=== PATIENT | male | born 1980 | race Hispanic/Latino ===

== ENCOUNTER 2017-08-28 00:44 | Emergency (ER) | payer SELFPAY | END 2017-08-28 01:09 | LOC: ERS 00:44 | DX: F10.129 Alcohol abuse with intoxication, unspecified (principal); F17.200 Nicotine dependence, unspecified, uncomplicated | CPT/HCPCS: 99284 ==

== ENCOUNTER 2018-01-15 15:57 | Emergency (ER) | payer SELFPAY | END 2018-01-15 17:04 | disposition home or self-care (01) | LOC: ERS 15:57 | DX: F10.129 Alcohol abuse with intoxication, unspecified (principal); F17.200 Nicotine dependence, unspecified, uncomplicated | CPT/HCPCS: 99283 ==

== ENCOUNTER 2020-05-13 13:58 | Observation (INO) | payer SELFPAY ==
[2020-05-13] MEDS ORDERED: Lorazepam 2 MG/ML VIAL ONE ×2 (14:21→15:36)
[2020-05-13] MEDS ORDERED: Ondansetron PF 4 MG/2 ML Vial ONE (14:38)
[2020-05-13 14:46] LABS: #Lymphocytes 0.6 thou/uL (1.20-3.40); #Neutrophils 10.9 thou/uL (1.40-6.50); %Basophils 0.3 % (0.0-1.0); %Eosinophils 0.1 % (0.0-10.0); %Lymphocytes 4.7 % (21.0-51.0); %Monocytes 8.2 % (0.0-10.0); %Neutrophils 86.8 % (42.0-75.0); Hemoglobin 13.8 g/dL (14.0-18.0); Mean Corpuscular HGB CONC 33.7 g/dL (32.0-36.0); Mean Corpuscular Hemoglobin 33.5 pg (27.0-31.0); Mean Corpuscular Volume 99.3 fL (78.0-98.0); Mean Platelet Volume 6.6 fL (7.4-10.4); Platelet Count 285 thou/uL (130-400); RBC Distribution Width 13.2 % (11.5-14.5); Red Blood Cell (RBC) Count 4.12 mill/uL (4.70-6.10); White Blood Cell (WBC) Count 12.6 thou/uL (4.8-10.8)
[2020-05-13 15:05] LABS: Acetaminophen Less than 6.0 mcg/mL (10.0-30.0); Alcohol 18 mg/dL (Less than 10); CK (CPK) 418 U/L (30-200); Salicylate Less than 8.0 mg/dL (15.0-30.0)
[2020-05-13 15:07] LABS: ALT (SGPT) 63 U/L (8-55); AST (SGOT) 68 U/L (5-34); Albumin 4.8 g/dL (3.5-5.0); Alkaline Phosphatase 134 U/L (40-110); Anion Gap 23 mmol/L (10-20); BUN (Urea Nitrogen) 7 mg/dL (8.9-20.6); Bilirubin, Total 1.1 mg/dL (0.2-1.2); Calc. Creatinine Clearance 0 mL/min (70-130); Calcium 9.8 mg/dL (7.8-10.44); Carbon Dioxide 21 mmol/L (22-29); Chloride 96 mmol/L (98-107); Globulin 3.5 g/dL (2.4-3.5); Glucose 88 mg/dL (70-105); Potassium 3.9 mmol/L (3.5-5.1); Protein, Total 8.3 g/dL (6.0-8.3); Sodium 136 mmol/L (136-145)
[2020-05-13] MEDS ORDERED: Diazepam 10 MG/2 ML SYRINGE ONE ×4 (16:14→18:22)
[2020-05-13 16:37] LABS: Amphetamine Detected (NotDetected); Barbiturates Screen Not Detected (NotDetected); Benzodiazepine Screen Not Detected (NotDetected); Cocaine Metabolite Screen Detected (NotDetected); Medtox Control Line Valid? VALID (VALID); Medtox Reader # READER 1; Methadone Not Detected (NotDetected); Methamphetamine Detected (NotDetected); Opiate Screen Not Detected (NotDetected); Oxycodone Screen Not Detected (NotDetected); Phencyclidine (PCP) Not Detected (NotDetected); THC/Cannabinoid Screen Not Detected (NotDetected); Tricyclic Screen Not Detected (NotDetected)
[2020-05-13] MEDS ORDERED: Ondansetron PF 4 MG/2 ML Vial IVP PRN (18:36)
[2020-05-13] MEDS ORDERED: chlordiazePOXIDE HCl 25 MG CAP PO PRN (18:47)
[2020-05-13] MEDS ORDERED: hydrALAZINE 20 MG/ML VIAL SLOW IVP PRN (18:55)
[2020-05-13] MEDS ORDERED: chlordiazePOXIDE HCl 25 MG CAP PO SCH (19:00)
[2020-05-13] MEDS ORDERED: Enoxaparin Sodium 40 MG/0.4 ML SYRINGE SC SCH (19:00)
[2020-05-13 22:07] VITALS: BMI 23.9
[2020-05-13] MEDS: Famotidine/PF 20 mg/2ml Vial SLOW IVP SCH (22:17)
[2020-05-13] MEDS: Dextrose 5 %-0.45 % NaCl 1,000 ML IV SCH (22:21)
[2020-05-14 02:34] LABS: SARS-CoV-2 PCR by NAA Not Detected (NotDetected)
[2020-05-14] MEDS ORDERED: Lorazepam 2 MG/ML VIAL SLOW IVP PRN (02:39)
[2020-05-14] MEDS ORDERED: Diazepam 5 MG TAB PO PRN (02:51)
[2020-05-14] MEDS ORDERED: Thiamine HCl 200 MG/2 ML VIAL IM SCH (03:30)
[2020-05-14 04:57] LABS: #Eosinphils 0.1 thou/uL (0.0-0.7); #Lymphocytes 1.2 thou/uL (1.20-3.40); #Monocytes 1.2 thou/uL (0.11-0.59); #Neutrophils 7.4 thou/uL (1.40-6.50); %Basophils 0.4 % (0.0-1.0); %Lymphocytes 12.4 % (21.0-51.0); %Monocytes 12.3 % (0.0-10.0); %Neutrophils 73.9 % (42.0-75.0); Hemoglobin 13.3 g/dL (14.0-18.0); Mean Corpuscular HGB CONC 33.8 g/dL (32.0-36.0); Mean Platelet Volume 6.9 fL (7.4-10.4); Platelet Count 251 thou/uL (130-400); RBC Distribution Width 13.1 % (11.5-14.5)
[2020-05-14 05:21] LABS: ALT (SGPT) 50 U/L (8-55); AST (SGOT) 59 U/L (5-34); Albumin 4.4 g/dL (3.5-5.0); Alkaline Phosphatase 111 U/L (40-110); Anion Gap 13 mmol/L (10-20); BUN (Urea Nitrogen) 6 mg/dL (8.9-20.6); Bilirubin, Total 1.4 mg/dL (0.2-1.2); Calc. Creatinine Clearance 107 mL/min (70-130); Calcium 9.5 mg/dL (7.8-10.44); Carbon Dioxide 28 mmol/L (22-29); Chloride 99 mmol/L (98-107); Globulin 2.9 g/dL (2.4-3.5); Glucose 106 mg/dL (70-105); Potassium 3.8 mmol/L (3.5-5.1); Protein, Total 7.3 g/dL (6.0-8.3); Sodium 136 mmol/L (136-145)
[2020-05-14] MEDS: Dextrose 5 %-0.45 % NaCl 1,000 ML IV SCH ×2 (07:20→07:21)
[2020-05-14 08:18] VITALS: TEMP 98.4
[2020-05-14] MEDS: Famotidine/PF 20 mg/2ml Vial SLOW IVP SCH (08:38)
[2020-05-14] MEDS ORDERED: Enoxaparin Sodium 40 MG/0.4 ML SYRINGE SC SCH (09:00)
[2020-05-14] MEDS ORDERED: Folic Acid 1 MG TAB PO SCH (09:00)
[2020-05-14] MEDS ORDERED: Multivitamin W/ Minerals 1 TAB PO SCH (09:00)
[2020-05-14] MEDS ORDERED: chlordiazePOXIDE HCl 25 MG CAP PO SCH (09:00)
[2020-05-14 11:22] VITALS: BP 152/80
[2020-05-15] MEDS ORDERED: Diazepam 5 MG TAB PO PRN (04:00)
[2020-05-15] MEDS ORDERED: Thiamine 100 MG TAB PO SCH (09:00)
[2020-05-15] MEDS ORDERED: Magnesium Oxide 400 MG TAB PO SCH (09:00)
== END 2020-05-14 12:09 | disposition home or self-care (01) ==
LOC: ERS 13:58 → 2SW 18:23
PROVIDERS: ADMIT Internal Medicine; ATTEND Internal Medicine
DX: F10.129 Alcohol abuse with intoxication, unspecified (principal); T40.5X1A Poisoning by cocaine, accidental (unintentional), initial encounter; F14.20 Cocaine dependence, uncomplicated; G92 Toxic encephalopathy; F17.210 Nicotine dependence, cigarettes, uncomplicated; Z20.822 Contact with and (suspected) exposure to COVID-19; Y90.0 Blood alcohol level of less than 20 mg/100 ml
CPT/HCPCS: 36415; 80053; 80306; 80307; 82550; 84443; 84484; 85025; 87635; 93005; 96365; 96372; 96374; 96375; 96376; G0378; J1650; J2060; J2405; J3360; J3411; J3475; J3490; S0028; U0003; U0005

== ENCOUNTER 2020-12-11 19:06 | Emergency (ER) | payer SELFPAY ==
[2020-12-11] MEDS ORDERED: Ondansetron PF 4 MG/2 ML Vial ONE (20:00)
[2020-12-11 20:34] LABS: #Lymphocytes 0.6 thou/uL (1.20-3.40); #Monocytes 1.2 thou/uL (0.11-0.59); #Neutrophils 15.8 thou/uL (1.40-6.50); %Basophils 0.2 % (0.0-1.0); %Eosinophils 0.3 % (0.0-10.0); %Lymphocytes 3.3 % (21.0-51.0); %Neutrophils 89.3 % (42.0-75.0); Hemoglobin 16.4 g/dL (14.0-18.0); Mean Corpuscular HGB CONC 34.2 g/dL (32.0-36.0); Mean Corpuscular Hemoglobin 34.2 pg (27.0-31.0); Mean Corpuscular Volume 99.9 fL (78.0-98.0); Mean Platelet Volume 6.8 fL (7.4-10.4); Platelet Count 332 thou/uL (130-400); RBC Distribution Width 12.4 % (11.5-14.5); Red Blood Cell (RBC) Count 4.81 mill/uL (4.70-6.10); White Blood Cell (WBC) Count 17.7 thou/uL (4.8-10.8)
[2020-12-11 20:47] LABS: ALT (SGPT) 59 U/L (8-55); AST (SGOT) 69 U/L (5-34); Albumin 5.2 g/dL (3.5-5.0); Alkaline Phosphatase 117 U/L (40-110); Anion Gap 24 mmol/L (10-20); BUN (Urea Nitrogen) 11 mg/dL (8.9-20.6); Bilirubin, Total 1.3 mg/dL (0.2-1.2); Calc. Creatinine Clearance 0 mL/min (70-130); Calcium 10.9 mg/dL (7.8-10.44); Carbon Dioxide 26 mmol/L (22-29); Chloride 96 mmol/L (98-107); Globulin 3.6 g/dL (2.4-3.5); Glucose 106 mg/dL (70-105); Lipase 17 U/L (8-78); Potassium 4.3 mmol/L (3.5-5.1); Protein, Total 8.8 g/dL (6.0-8.3); Sodium 142 mmol/L (136-145)
[2020-12-11] MEDS ORDERED: Multivitamins, Adult 10 ML, Thiamine HCl 100 MG, Folic Acid 1 MG in Dextrose 5 %-0.45 %... IV SCH (21:30)
[2020-12-11] MEDS ORDERED: Pantoprazole 40 MG VIAL ONE (21:45)
[2020-12-11] MEDS ORDERED: Famotidine/PF 20 mg/2ml Vial ONE (21:45)
== END 2020-12-11 23:10 | disposition home or self-care (01) ==
LOC: ERS 19:06
DX: R11.2 Nausea with vomiting, unspecified (principal); I10 Essential (primary) hypertension; F17.210 Nicotine dependence, cigarettes, uncomplicated
CPT/HCPCS: 36415; 80053; 83690; 85025; 93005; 96374; 96375; C9113; J2405; J3411; J7042; S0028